=== PATIENT | female | born 1950 | race Caucasian/White ===

== ENCOUNTER 2017-04-04 16:07 | Outpatient (CLI) | payer MEDICARE, MEDICAID | END 2017-04-04 16:08 | disposition home or self-care (01) | LOC: MADLAB 16:07 | PROVIDERS: ATTEND Family Medicine | DX: J11.1 Influenza due to unidentified influenza virus with other respiratory manifestations (principal) ==

== ENCOUNTER 2017-04-12 08:58 | Emergency (ER) | payer MEDICARE, OTHER ==
[~2017-04-12 08:58] MED LIST: Iopamidol 370 76% 100 ML VIAL ONE
--- NOTE | 2017-04-12 09:21 | RAD ---
AP VIEW CHEST: HISTORY: Left rib pain FINDINGS: AP portable view chest is obtained on 04/12/17. Comparison is made to previous exam from 01/13/15. AP view chest demonstrates areas of patchy airspace opacity in the left lung base. This may represen t an area of left lower lobe pneumonia. This has developed since the previous comparison exam. Foll owup films to resolution recommended. Some areas of scarring are seen in both upper lobes. IMPRESSION: Areas of patchy density in the left lung base. POS: [facility]
[2017-04-12 09:45] LABS: Bilirubin Negative (Negative); Blood, Urine Negative (Negative); Clarity Clear (Clear); Glucose, Urine (Dipstick) Negative (Negative); Leukocyte Negative (Negative); Nitrite Negative (Negative); Protein, Urine (Dipstick) 30 mg/dL (Neg-Trace); Urobilinogen 0.2 mg/dL (0.2-1.0); pH, Urine 5.5 (5.0-9.0)
[2017-04-12 09:46] LABS: Hemoglobin 11.5 g/dL (12.0-16.0); Mean Corpuscular HGB CONC 33.1 g/dL (32.0-36.0); Mean Corpuscular Hemoglobin 28.6 pg (27.0-31.0); Mean Corpuscular Volume 86.4 fl (81.0-99.0); Mean Platelet Volume 6.8 fL (7.4-10.4); Platelet Count 152 thou/uL (130-400); RBC Distribution Width 13.6 % (11.5-14.5); Red Blood Cell (RBC) Count 4.02 mill/uL (4.20-5.40); White Blood Cell (WBC) Count 8.5 thou/uL (4.8-10.8)
[2017-04-12 09:48] LABS: Specific Gravity, Urine 1.016 (1.002-1.036)
[2017-04-12 09:51] LABS: Manual Diff?? YES
[2017-04-12 09:52] LABS: Anisocytosis SLIGHT = 6-15 cells (100X) (0-5/hpf); Band 2 % (5-11); Eosinophils 1 % (0-10); Lymphocytes 9 % (21-51); MDiff Complete? YES; Monocytes 6 % (0-10); Neutrophil 82 % (42-75); PLT Morphology Comment Appears Adequate
[2017-04-12 09:54] LABS: Bacteria/HPF Rare-Few HPF (None Seen); RBC/HPF 0-3 HPF (0-3); Squamous Epithelial 0-3 HPF (0-3); WBC/HPF 0-3 HPF (0-3)
[2017-04-12 09:57] LABS: Anion Gap 17 mmol/L (10-20); BUN (Urea Nitrogen) 9 mg/dL (9.8-20.1); Calc. Creatinine Clearance 0 mL/min (70-130); Calcium 8.7 mg/dL (7.8-10.44); Carbon Dioxide 16 mmol/L (23-31); Chloride 106 mmol/L (98-107); Estimated GFR-MDRD 39; Glucose 112 mg/dL (80-115); Potassium 4.6 mmol/L (3.5-5.1); Sodium 134 mmol/L (136-145)
[2017-04-12] MEDS ORDERED: Lorazepam 2 MG/ML VIAL ONE (10:24)
[2017-04-12] MEDS ORDERED: Haloperidol Lactate 5 MG/ML VIAL ONE (10:24)
--- NOTE | 2017-04-12 11:36 | CT ---
CT ABDOMEN AND PELVIS WITH IV CONTRAST: Date: 04/12/17 HISTORY: Trauma. Fell from standing position. Patient complains of left upper quadrant pain. FINDINGS: Comparison made with exam dated 07/17/14. There is patchy consolidation in the lower lung barcenas, predominantly on the left. There is nodularit y in the right lung base. Multiple low density lesions are seen in the liver, new since the last exam, suspicious for metastati c disease. Atrophy of the right kidney is again seen. The liver, spleen, pancreas, adrenal glands, an d kidneys appear intact. The patient is post cholecystectomy. The pancreatic head remains prominent, similar to the 11/21/13 study. Atrophy of the pancreatic tail is again seen. No free air, free fluid, or lymphadenopathy seen in the abdomen or pelvis. There are vascular calcifi cations without evidence of aneurysmal dilatation of the abdominal aorta. There are degenerative cisse ges in the spine. There is sigmoid diverticulosis. 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 IMPRESSION: 1. No CT evidence of solid organ injury. 2. Consolidation in the left lower lobe and probable nodule in the right lower lung. 3. Low density lesions in the liver suspicious for metastatic disease. 4. Atrophic right kidney. POS: [facility]
[2017-04-12] MEDS ORDERED: Sodium Chloride 0.9% 1,000 ML BAG ONE (13:49)
== END 2017-04-12 09:30 | disposition home or self-care (01) ==
LOC: MADERS 08:58
DX: R07.89 Other chest pain (principal); G40.909 Epilepsy, unspecified, not intractable, without status epilepticus; I25.2 Old myocardial infarction; F41.9 Anxiety disorder, unspecified; Z79.899 Other long term (current) drug therapy
CPT/HCPCS: 71045; 74177; 80048; 81003; 81015; 82150; 85025; 96374; 96375; J1630; J2060; J7050

== ENCOUNTER 2017-04-13 10:00 | Emergency (ER) | payer MEDICARE, OTHER ==
[~2017-04-13 10:00] MED LIST changes: -Iopamidol 370 76% 100 ML VIAL ONE; +Sodium Chloride 0.9% 1,000 ML BAG ONE; +Sodium Chloride 0.9% 100 ML BAG ONE
[2017-04-13 10:16] LABS: #Lymphocytes 0.7 thou/uL (1.20-3.40); #Monocytes 0.3 thou/uL (0.11-0.59); #Neutrophils 10.1 thou/uL (1.40-6.50); %Basophils 0.3 % (0.0-1.0); %Eosinophils 0.1 % (0.0-10.0); %Lymphocytes 6.6 % (21.0-51.0); %Monocytes 2.9 % (0.0-10.0); %Neutrophils 90.1 % (42.0-75.0); Hemoglobin 11.9 g/dL (12.0-16.0); Mean Corpuscular HGB CONC 32.3 g/dL (32.0-36.0); Mean Corpuscular Hemoglobin 28.5 pg (27.0-31.0); Mean Corpuscular Volume 88.2 fl (81.0-99.0); Mean Platelet Volume 6.3 fL (7.4-10.4); Platelet Count 186 thou/uL (130-400); RBC Distribution Width 13.3 % (11.5-14.5); Red Blood Cell (RBC) Count 4.16 mill/uL (4.20-5.40); White Blood Cell (WBC) Count 11.2 thou/uL (4.8-10.8)
[2017-04-13 10:25] LABS: PTT 27.2 SEC (22.9-36.1)
--- NOTE | 2017-04-13 10:28 | CT ---
NONCONTRAST HEAD CT: Date: 04/13/17 HISTORY: Stroke alert. Right facial droop, slurred speech. Symptoms have been happening for 2 weeks, lasting a pproximately 2-3 minutes at a time. COMPARISON: 01/05/16. TECHNIQUE: Noncontrast head CT is performed from skull base to skull vertex. FINDINGS: Stable malacic changes involving the left cerebrum. There is associated gliosis and ex vacuo dilatati on of the ventricular system. Additional white matter hypodensities due to chronic small vessel ische lissett change are noted. Hypoattenuation involving the posterior limb of the left internal capsule is pr esent. Hypoattenuation of the left lentiform nucleus is also noted. There is layering degeneration of the left cerebral peduncle. There is preservation of cortical putnam-white matter differentiation in t he right cerebrum. Adequate aeration of the mastoid air cells. There is paranasal sinus disease. Calvarium is intact. Th ere is atherosclerosis of carotid arteries. IMPRESSION: No acute intracranial process. Chronic changes as above. Results of study discussed with Dr. Mann Cox on 04/13/17 at 1022 hours. CODE CR. POS: [facility]
[2017-04-13 10:33] LABS: INR-International Normal Ratio 1.3; Prothrombin Time 16.4 SEC (12.0-14.7)
[2017-04-13 10:34] LABS: ALT (SGPT) 17 U/L (8-55); AST (SGOT) 27 U/L (5-34); Albumin 3.6 g/dL (3.4-4.8); Alkaline Phosphatase 90 U/L (40-150); Anion Gap 18 mmol/L (10-20); BUN (Urea Nitrogen) 10 mg/dL (9.8-20.1); Bilirubin, Total 0.4 mg/dL (0.2-1.2); Calc. Creatinine Clearance 0 mL/min (70-130); Calcium 8.8 mg/dL (7.8-10.44); Carbon Dioxide 16 mmol/L (23-31); Chloride 107 mmol/L (98-107); Estimated GFR-MDRD 39; Globulin 4.1 g/dL (2.4-3.5); Glucose 122 mg/dL (80-115); Protein, Total 7.7 g/dL (6.0-8.3); Sodium 137 mmol/L (136-145)
--- NOTE | 2017-04-13 10:45 | RAD ---
CHEST 1 VIEW: HISTORY: Altered mental status. Dyspnea. COMPARISON: 04/12/17. FINDINGS: Cardiac silhouette is magnified by projection. Patchy infiltrate at the left base is again demonstra gabriella, confirmed on CT from 04/12/17. Pulmonary vasculature is upper limits of normal. Mediastinum is midline with aortic calcification. IMPRESSION: Left basilar infiltrate and other findings are stable. POS: [facility]
[2017-04-13 10:51] LABS: Troponin I 0.015 ng/mL (< 0.028)
[2017-04-13 10:52] LABS: CKMB 6.9 ng/mL (0-6.6)
[2017-04-13 11:07] LABS: Bilirubin Negative (Negative); Blood, Urine Negative (Negative); Clarity Clear (Clear); Glucose, Urine (Dipstick) Negative (Negative); Leukocyte Negative (Negative); Nitrite Negative (Negative); Protein, Urine (Dipstick) Trace mg/dL (Neg-Trace); Specific Gravity, Urine 1.015 (1.005-1.030); Urobilinogen 0.2 mg/dL (0.2-1.0)
[2017-04-13 11:17] LABS: Bacteria/HPF 2+ HPF (None Seen); RBC/HPF None Seen HPF (0-3); Squamous Epithelial 0-3 HPF (0-3); WBC/HPF None Seen HPF (0-3)
[2017-04-13 11:18] LABS: Other Casts/LPF 0-3 FINELY GRAN LPF (0-3 Hyaline)
[2017-04-13] MEDS ORDERED: cefTRIAXone\\ROCEPHIN 1 GM VIAL ONE (12:04)
[2017-04-13] MEDS ORDERED: Sodium Chloride 0.9% 0 ML ONE (12:05)
== END 2017-04-13 12:50 | disposition short-term general hospital (02) ==
LOC: MADERS 10:00
DX: I63.9 Cerebral infarction, unspecified (principal); J18.9 Pneumonia, unspecified organism; G40.909 Epilepsy, unspecified, not intractable, without status epilepticus; F41.9 Anxiety disorder, unspecified; Z79.899 Other long term (current) drug therapy
CPT/HCPCS: 36415; 51702; 70450; 71045; 80053; 81001; 82553; 83880; 84484; 85025; 85610; 85730; 87040; 87086; 93005; 94640; 94760; 96365; J0696; J7050; J7620